=== PATIENT | male | born 1995 | race Asian ===

== ENCOUNTER 2017-10-31 21:12 | Emergency (ER) | payer MEDICAID ==
[~2017-10-31] VITALS: Ht 160 cm; Wt 78.2 kg
[2017-10-31] MEDS ORDERED: TAM75C PO (22:51)
[2017-10-31] MEDS ORDERED: oseltamivir phos 75mg capsule PO ONE (22:55)
[2017-10-31 23:09] VITALS: BP 121/63
== END 2017-10-31 23:10 | disposition home or self-care (01) ==
LOC: ER 21:14
DX: J09.X2 Influenza due to identified novel influenza A virus with other respiratory manifestations (principal); Z79.899 Other long term (current) drug therapy
CPT/HCPCS: 71045; 87502; 87503; 99285